=== PATIENT | male | born 1990 | race African-American/Black ===

== ENCOUNTER 2016-09-28 15:23 | Emergency (ER) | payer BC, OTHER ==
[2016-09-28 15:37] VITALS: RESP 16; TEMP 97.3
--- NOTE | 2016-09-28 15:48 | EDPHY ---
H & P Stated Complaint: Itchy from suspected allergy to sunflower seeds Time Seen by Provider: 09/28/16 15:47 - Personal History Current Tetanus/Diphtheria Vaccine: Unsure Current Tetanus Diphtheria and Acellular Pertussis (TDAP): Unsure - Medical/Surgical History Hx Asthma: No Hx Chronic Respiratory Disease: No Hx Diabetes: No Hx Cardiac Disease: No Hx Renal Disease: No Hx Cirrhosis: No Hx Alcoholism: No Hx HIV/AIDS: No Hx Splenectomy or Spleen Trauma: No - Social History Smoking Status: Former smoker Constitutional: Initial Vital Signs Temperature (C) 36.3 C 09/28/16 15:34 Heart Rate 58 L 09/28/16 15:34 Respiratory Rate 16 09/28/16 15:34 Blood Pressure 128/68 H 09/28/16 15:34 O2 Sat (%) 98 09/28/16 15:34 O2 Delivery Mode Room Air Allergies/Adverse Reactions: No Known Allergies Allergy (Unverified 09/28/16 15:37) Medical Decision Making ED Course/Re-evaluation: CHIEF COMPLAINT: Allergic reaction HISTORY OF PRESENT ILLNESS: The patient is a 25 year old male presenting with an allergic reaction. This morning he ate a granola bar with sesame oil and his lips and mouth began to tingle. Since eating the bar, he developed abdominal cramping with diarrhea. He now has diffuse hives that are itchy. The patient believes he has a sesame allergy and has experienced these symptoms 2 previous times. Both episodes in the past did not require medication. REVIEW OF SYSTEMS: A 10 point review of systems was performed and is negative with the exception of the elements mentioned in the history of present illness. PHYSICAL EXAM: HR, BP, O2 Sat, RR. Temp noted General Appearance: Alert, well hydrated, appropriate, and non-toxic appearing. Head: Atraumatic without scalp tenderness or obvious injury Eyes: Pupils equal, round, reactive to light and accommodation, EOMI, no trauma , no injection. Ears: Clear bilaterally, no perforation, normal landmarks Nose: Atraumatic, no rhinorrhea, clear. Throat: There is no erythema or exudates, no lesions, normal tonsils, mucus membranes moist. Neck: Supple, 2+ carotid upstroke, nontender, no lymphadenopathy. Respiratory: No retractions, no distress, no wheezes, and no accessory muscle use. Lungs are clear to auscultation bilaterally. Cardiovascular: Regular rate and rhythm, no murmurs, rubs, or gallops. Bilateral carotid, radial, dorsalis pedis, and posterior tibial pulses intact. Good capillary refill all extremities. Gastrointestinal: Abdomen is soft, nontender, non-distended, no masses, no rebound, no guarding, no peritoneal signs. Musculoskeletal: Normal active ROM of all extremities, atraumatic. Neurological: Alert, appropriate, and interactive. The patient has normal DTRs and non-focal cranial nerves, motor, sensory, and cerebellar exam. Skin: No rashes, good turgor, no nodules on palpation. Past medical history: Denies Past surgical history: Denies Family history: Noncontributory Social history: Marijuana use. Works in [employer] DIFFERENTIAL DIAGNOSIS: The differential diagnosis included but was not limited to angioedema, anaphylaxis, anaphylactoid reaction, urticarial reaction, and other infectious causes for skin rash. MEDICAL DECISION MAKING: The patient is a 25 year old male here with diffuse hives after eating a granola bar with sesame oil. The patient has previously had a similar allergic reaction after eating sesame. His previous allergic reactions did no require medication. I believe his presentation today is similar to past reactions. On exam, the patient is in no respiratory distress. Uvula and tongue do not appear swollen. I will give the patient 1 dose of Decadron PO and discharge him home with Steroids. Departure - Departure Disposition: Home, Routine, Self-Care Clinical Impression: Allergic reaction Qualifiers: Encounter type: initial encounter Qualifier Code: (T78.40XA) Allergy, unspecified, initial encounter Condition: Good Instructions: Food Allergy (ED) Additional Instructions: Take Steroids as directed. Take Benadryl at night to reduce itchiness. Referrals: Valentino Alvarez MD [Medical Doctor] - As per Instructions (Spa Manager) Report Scribed for: Uvaldo Andres Report Scribed by: Maylin Elliott Date of Report: 09/28/16 Time of Report: 16:15
[2016-09-28] MEDS ORDERED: DEXAMETHASONE VARIABLE DOSE IVP/PO ONE (16:26)
[2016-09-28] MEDS ORDERED: DEXAMETHASONE 10 MG/ML VIAL ONE (16:36)
[2016-09-28 16:42] VITALS: BP 118/72; PULSE 63; O2SAT 96
== END 2016-09-28 16:43 | disposition home or self-care (01) ==
DX: T78.1XXA Other adverse food reactions, not elsewhere classified, initial encounter (principal); Z87.891 Personal history of nicotine dependence